=== PATIENT | male | born 1985 | race Caucasian/White ===

== ENCOUNTER → 2016-07-17 | Outpatient (CLI) | payer OTHER | END | disposition home or self-care (01) | LOC: RAD 09:11 | DX: K50.019 Crohn's disease of small intestine with unspecified complications (principal) ==

== ENCOUNTER → 2017-06-24 | Outpatient (CLI) | payer OTHER | END | disposition home or self-care (01) | LOC: LAB 13:34 | DX: Z13.71 Encounter for nonprocreative screening for genetic disease carrier status (principal) ==

== ENCOUNTER → 2018-01-30 | Outpatient (CLI) | payer OTHER ==
[2018-01-30 09:44] LABS: BASO % 0.4 % (0.0-1.0); EOS # 0.2 10*3/uL (0.0-0.4); EOS % 2.5 % (1.0-4.0); HEMATOCRIT 44.8 % (42.0-52.0); HEMOGLOBIN 14.6 g/dl (14.0-18.0); LYMPH # 1.1 10*3/uL (1.3-4.4); LYMPH % 12.8 % (27.0-41.0); MEAN CELL VOLUME 81.8 fl (80.0-94.0); MEAN CORPUSCULAR HGB 26.6 pg (27.0-31.0); MEAN CORPUSCULAR HGB CONC 32.6 g/dl (33.0-37.0); MEAN PLATELET VOLUME 9.2 fl (9.6-12.3); MONO # 0.8 10*3/uL (0.1-1.0); MONO % 9.8 % (3.0-9.0); NEUT # 6.3 10*3/uL (2.3-7.9); NEUT % 74.1 % (47.0-73.0); PLATELET COUNT AUTOMATED 270 10*3/uL (130-400); RED BLOOD COUNT 5.48 10*6/uL (4.50-5.90); RED CELL DISTRI WIDTH 13.4 % (0-14.5); WHITE BLOOD COUNT 8.5 10*3/uL (4.8-10.8)
[2018-01-30 10:12] LABS: ALBUMIN 3.4 gm/dl (3.1-4.5); BUN 11 mg/dl (7-24); CHLORIDE 106 mmol/L (98-107); CREATININE 1.05 mg/dL (0.70-1.30); SGOT/AST 19 IU/L (3-35); SGPT/ALT 23 U/L (12-78); SODIUM 140 mmol/L (136-145)
[2018-01-30 10:13] LABS: ALKALINE PHOSPHATASE 69 U/L (45-117); TOTAL PROTEIN 7.1 gm/dL (6.4-8.2)
== END | disposition home or self-care (01) ==
LOC: LAB 09:10
PROVIDERS: Physician Assistant
DX: K50.019 Crohn's disease of small intestine with unspecified complications (principal)

== ENCOUNTER 2018-08-12 14:35 | Emergency (ER) | payer OTHER ==
[~2018-08-12] VITALS: Ht 182.8 cm; Wt 61.7 kg
[2018-08-12 15:00] LABS: BASO % 0.2 % (0.0-1.0); EOS % 0.2 % (1.0-4.0); HEMATOCRIT 41.8 % (42.0-52.0); HEMOGLOBIN 13.5 g/dl (14.0-18.0); LYMPH # 0.9 10*3/uL (1.3-4.4); LYMPH % 7.1 % (27.0-41.0); MEAN CELL VOLUME 83.4 fl (80.0-94.0); MEAN CORPUSCULAR HGB 26.9 pg (27.0-31.0); MEAN CORPUSCULAR HGB CONC 32.3 g/dl (33.0-37.0); MEAN PLATELET VOLUME 9.2 fl (9.6-12.3); MONO % 8.4 % (3.0-9.0); NEUT # 10.2 10*3/uL (2.3-7.9); NEUT % 83.7 % (47.0-73.0); PLATELET COUNT AUTOMATED 293 10*3/uL (130-400); RED BLOOD COUNT 5.01 10*6/uL (4.50-5.90); RED CELL DISTRI WIDTH 13.5 % (0-14.5); WHITE BLOOD COUNT 12.2 10*3/uL (4.8-10.8)
[2018-08-12 15:18] LABS: ALBUMIN 3.5 gm/dl (3.1-4.5); ALKALINE PHOSPHATASE 58 U/L (45-117); BUN 10 mg/dl (7-24); CHLORIDE 106 mmol/L (98-107); CREATININE 0.99 mg/dL (0.70-1.30); POTASSIUM 3.5 mmol/L (3.5-5.1); SGOT/AST 16 IU/L (3-35); SGPT/ALT 24 U/L (12-78); SODIUM 140 mmol/L (136-145); TOTAL PROTEIN 6.8 gm/dL (6.4-8.2)
[2018-08-12 16:07] LABS: BILIRUBIN NEGATIVE (NEGATIVE); BLOOD 3+ (NEGATIVE); CLARITY CLEAR (CLEAR); COLOR YELLOW (YELLOW); GLUCOSE NEGATIVE (NEGATIVE); KETONE NEGATIVE (NEGATIVE); LEUKO ESTERASE NEGATIVE (NEGATIVE); NITRITE NEGATIVE (NEGATIVE); UROBILINOGEN 0.2 E.U./dl (0.2-1.0)
[2018-08-12 16:13] LABS: WBC 0-2 wbc/hpf (0-5)
[2018-08-12] MEDS ORDERED: Motrin,Rufen800 MG PO (18:06)
[2018-08-12] MEDS ORDERED: FLOMAX0.4 MG PO (18:06)
== END 2018-08-12 18:38 | disposition home or self-care (01) ==
LOC: ED 14:35
PROVIDERS: Physician Assistant
DX: N13.2 Hydronephrosis with renal and ureteral calculous obstruction (principal); Z87.442 Personal history of urinary calculi

== ENCOUNTER → 2018-09-03 | Outpatient (CLI) | payer OTHER ==
[~2018-09-03] MED LIST: FLOMAX0.4 MG PO; Motrin,Rufen800 MG PO
== END | disposition home or self-care (01) ==
LOC: US 12:59
DX: N13.39 Other hydronephrosis (principal)

== ENCOUNTER → 2018-10-15 | Outpatient (CLI) | payer OTHER | END | disposition home or self-care (01) | LOC: US 16:58 | DX: N20.0 Calculus of kidney (principal) ==

== ENCOUNTER → 2018-10-29 | Outpatient (CLI) | payer OTHER ==
[2018-10-29 16:53] LABS: BASO % 0.5 % (0.0-1.0); EOS # 0.2 10*3/uL (0.0-0.4); EOS % 1.9 % (1.0-4.0); HEMATOCRIT 42.1 % (42.0-52.0); HEMOGLOBIN 13.7 g/dl (14.0-18.0); LYMPH # 0.9 10*3/uL (1.3-4.4); LYMPH % 10.9 % (27.0-41.0); MEAN CELL VOLUME 80.7 fl (80.0-94.0); MEAN CORPUSCULAR HGB 26.2 pg (27.0-31.0); MEAN CORPUSCULAR HGB CONC 32.5 g/dl (33.0-37.0); MEAN PLATELET VOLUME 8.9 fl (9.6-12.3); MONO # 0.9 10*3/uL (0.1-1.0); MONO % 10.7 % (3.0-9.0); NEUT # 6.1 10*3/uL (2.3-7.9); NEUT % 75.8 % (47.0-73.0); PLATELET COUNT AUTOMATED 310 10*3/uL (130-400); RED BLOOD COUNT 5.22 10*6/uL (4.50-5.90); RED CELL DISTRI WIDTH 13.4 % (0-14.5)
[2018-10-29 17:25] LABS: ALBUMIN 3.4 gm/dl (3.1-4.5); ALKALINE PHOSPHATASE 65 U/L (45-117); BUN 8 mg/dl (7-24); CHLORIDE 103 mmol/L (98-107); CREATININE 0.89 mg/dL (0.70-1.30); POTASSIUM 3.9 mmol/L (3.5-5.1); SGOT/AST 13 IU/L (3-35); SGPT/ALT 19 U/L (12-78); SODIUM 137 mmol/L (136-145); T3 UPTAKE 39 % (31-39); THYROXINE (T4) TOTAL 8.7 ug/dl (4.5-12.1); TOTAL PROTEIN 7.4 gm/dL (6.4-8.2)
== END | disposition home or self-care (01) ==
LOC: CT 08:00 → LAB 15:56 → CT 16:00
PROVIDERS: Urology
DX: N20.0 Calculus of kidney (principal); K59.00 Constipation, unspecified

== ENCOUNTER → 2018-11-12 | Outpatient (CLI) | payer OTHER | END | disposition home or self-care (01) | LOC: LAB 16:55 | DX: K50.019 Crohn's disease of small intestine with unspecified complications (principal) ==

== ENCOUNTER → 2018-11-13 | Outpatient (CLI) | payer OTHER ==
[2018-11-21 18:10] LABS: BUSHITE 1.87 ratio (0.00-3.00); CALCIUM OXALATE 1.87 ratio (0.00-6.00); CALCIUM, URINE 155.8 mg/24 hr (100.0-300.0); CALCIUM, URINE 8.2 mg/dL (Not Estab.); CITRIC ACID (CITRATE) 272 mg/24 hr (320-1240); CREATININE, URINE 1584.6 mg/24 hr (1000.0-2000.0); CREATININE, URINE 83.4 mg/dL (Not Estab.); MAGNESIUM, URINE 2.4 mg/dL (Not Estab.); MONOSODIUM URATE 2.26 ratio (0.00-4.00); OSMOLALITY, URINE 329 (300-900); SODIUM, URINE 125 (58-337); SODIUM, URINE 66 mmol/L (Not Estab.); STRUVITE 0.17 ratio (0.00-1.00); URIC ACID 0.09 ratio (0.00-1.20); pH 24 HR URINE 7.2 (.)
== END | disposition home or self-care (01) ==
LOC: LAB 16:40
PROVIDERS: Urology
DX: N20.0 Calculus of kidney (principal)

== ENCOUNTER 2020-02-19 08:54 | Emergency (ER) | payer OTHER ==
[~2020-02-19] VITALS: Ht 182.8 cm; Wt 68.0 kg
== END 2020-02-19 09:38 | disposition home or self-care (01) ==
LOC: ED 08:54
DX: K61.0 Anal abscess (principal); Z88.8 Allergy status to other drugs, medicaments and biological substances; Z79.899 Other long term (current) drug therapy

== ENCOUNTER → 2020-10-07 | Outpatient (CLI) | payer OTHER ==
[2020-10-07 10:35] LABS: BASO % 0.4 % (0.0-1.0); EOS # 0.2 10*3/uL (0.0-0.4); EOS % 1.7 % (1.0-4.0); HEMATOCRIT 48.5 % (42.0-52.0); LYMPH # 1.7 10*3/uL (1.3-4.4); LYMPH % 16.8 % (27.0-41.0); MEAN CELL VOLUME 87.4 fl (80.0-94.0); MEAN CORPUSCULAR HGB 29.7 pg (27.0-31.0); MEAN PLATELET VOLUME 9.6 fl (9.6-12.3); MONO # 0.7 10*3/uL (0.1-1.0); MONO % 7.1 % (3.0-9.0); NEUT # 7.4 10*3/uL (2.3-7.9); NEUT % 73.8 % (47.0-73.0); PLATELET COUNT AUTOMATED 229 10*3/uL (130-400); RED BLOOD COUNT 5.55 10*6/uL (4.50-5.90); RED CELL DISTRI WIDTH 12.4 % (0-14.5); WHITE BLOOD COUNT 10.1 10*3/uL (4.8-10.8)
[2020-10-07 11:14] LABS: ALBUMIN 4.3 gm/dl (3.1-4.5); ALKALINE PHOSPHATASE 63 U/L (45-117); BUN 13 mg/dl (7-24); CHLORIDE 108 mmol/L (98-107); SGOT/AST 16 IU/L (3-35); SGPT/ALT 30 U/L (12-78); SODIUM 139 mmol/L (136-145); TOTAL PROTEIN 8.3 gm/dL (6.4-8.2)
[2020-10-07 13:09] LABS: VITAMIN D, 25-HYDROXY 82.6 ng/mL (30-100)
== END | disposition home or self-care (01) ==
LOC: LAB 10:18
PROVIDERS: ATTEND Internal Medicine Gastroenterology
DX: K50.019 Crohn's disease of small intestine with unspecified complications (principal)

== ENCOUNTER → 2021-07-31 | Outpatient (CLI) | payer OTHER ==
[2021-07-31 07:57] LABS: BASO % 0.4 % (0.0-1.0); EOS # 0.2 10*3/uL (0.0-0.4); EOS % 1.5 % (1.0-4.0); HEMATOCRIT 50.9 % (42.0-52.0); LYMPH % 18.2 % (27.0-41.0); MEAN CELL VOLUME 85.3 fl (80.0-94.0); MEAN CORPUSCULAR HGB 29.6 pg (27.0-31.0); MEAN CORPUSCULAR HGB CONC 34.8 g/dl (33.0-37.0); MEAN PLATELET VOLUME 9.3 fl (9.6-12.3); MONO # 0.9 10*3/uL (0.1-1.0); NEUT # 7.9 10*3/uL (2.3-7.9); NEUT % 71.5 % (47.0-73.0); PLATELET COUNT AUTOMATED 270 10*3/uL (130-400); RED BLOOD COUNT 5.97 10*6/uL (4.50-5.90); RED CELL DISTRI WIDTH 12.5 % (0-14.5)
[2021-07-31 08:20] LABS: ALKALINE PHOSPHATASE 62 U/L (45-117); BUN 14 mg/dl (7-24); CHLORIDE 105 mmol/L (98-107); CREATININE 1.07 mg/dL (0.70-1.30); POTASSIUM 3.9 mmol/L (3.5-5.1); SGOT/AST 18 IU/L (3-35); SGPT/ALT 36 U/L (12-78); SODIUM 138 mmol/L (136-145)
[2021-07-31 08:25] LABS: VITAMIN D, 25-HYDROXY 43.4 ng/mL (30-100)
== END ==
LOC: LAB 07:30
PROVIDERS: ATTEND Internal Medicine Gastroenterology
DX: K50.019 Crohn's disease of small intestine with unspecified complications (principal)

== ENCOUNTER 2022-04-27 08:14 | Inpatient (IN) | payer OTHER ==
[2022-04-27] VITALS (9 sets, daily range): BP systolic 107–155; BP diastolic 74–112
[~2022-04-27] VITALS: Ht 182.9 cm; Wt 76.7 kg
[2022-04-27 08:55] LABS: BASO # 0.1 10*3/uL (0.0-0.1); BASO % 0.5 % (0.0-1.0); EOS # 0.1 10*3/uL (0.0-0.4); EOS % 1.2 % (1.0-4.0); HEMATOCRIT 52.4 % (42.0-52.0); LYMPH # 2.1 10*3/uL (1.3-4.4); LYMPH % 22.1 % (27.0-41.0); MEAN CELL VOLUME 85.3 fl (80.0-94.0); MEAN CORPUSCULAR HGB 30.8 pg (27.0-31.0); MEAN CORPUSCULAR HGB CONC 36.1 g/dl (33.0-37.0); MEAN PLATELET VOLUME 9.4 fl (9.6-12.3); MONO # 0.9 10*3/uL (0.1-1.0); MONO % 9.8 % (3.0-9.0); NEUT # 6.2 10*3/uL (2.3-7.9); NEUT % 66.1 % (47.0-73.0); PLATELET COUNT AUTOMATED 261 10*3/uL (130-400); RED BLOOD COUNT 6.14 10*6/uL (4.50-5.90); WHITE BLOOD COUNT 9.4 10*3/uL (4.8-10.8)
[2022-04-27 09:09] LABS: ALKALINE PHOSPHATASE 63 U/L (46-116); BUN 9 mg/dl (9-23); CHLORIDE 103 mmol/L (98-107); POTASSIUM 3.5 mmol/L (3.4-5.1); SGPT/ALT 55 U/L (10-49); TOTAL PROTEIN 7.6 gm/dL (6.0-8.0)
[2022-04-27 09:11] LABS: ACT PARTIAL THROMBO TIME 26.4 SECONDS (20.0-32.1)
[2022-04-27] MEDS ORDERED: REMICADE100 MG IV (10:53)
[2022-04-28] VITALS: BP 110/78
[2022-04-28 08:00] VITALS: BP 120/84
[2022-04-28 12:00] VITALS: BP 116/80
[2022-04-28 16:00] VITALS: BP 121/91
[2022-04-28] MEDS ORDERED: ZOLOFT50 MG PO (16:46)
[2022-04-28] MEDS ORDERED: METOPROLOL SUCC25 M2 PO (16:46)
[2022-04-28] MEDS ORDERED: ADULT LOW DOSE81 MG PO (16:48)
== END 2022-04-28 18:30 | disposition home or self-care (01) | DRG 309 ==
LOC: ED 08:14 → EDHOLD 13:06 → 5E 13:29
PROVIDERS: Emergency Medicine; ADMIT Internal Medicine; ATTEND Internal Medicine
DX: I48.91 Unspecified atrial fibrillation (principal); K50.90 Crohn's disease, unspecified, without complications; K61.0 Anal abscess; F41.1 Generalized anxiety disorder; I34.0 Nonrheumatic mitral (valve) insufficiency; Z79.899 Other long term (current) drug therapy; Z88.8 Allergy status to other drugs, medicaments and biological substances; Z90.49 Acquired absence of other specified parts of digestive tract

== ENCOUNTER → 2022-05-04 | Outpatient (CLI) | payer OTHER ==
[~2022-05-04] MED LIST changes: +ADULT LOW DOSE81 MG PO; +METOPROLOL SUCC25 M2 PO; +REMICADE100 MG IV; +ZOLOFT50 MG PO
== END | disposition home or self-care (01) ==
LOC: CARD 00:13
PROVIDERS: ATTEND Internal Medicine
DX: I48.91 Unspecified atrial fibrillation (principal)

== ENCOUNTER → 2023-01-28 | Outpatient (CLI) | payer OTHER ==
[2023-01-28 10:06] LABS: BASO % 0.6 % (0.0-1.0); EOS # 0.2 10*3/uL (0.0-0.4); EOS % 3.6 % (1.0-4.0); HEMATOCRIT 50.8 % (42.0-52.0); LYMPH % 31.6 % (27.0-41.0); MEAN CELL VOLUME 83.6 fl (80.0-94.0); MEAN CORPUSCULAR HGB 29.6 pg (27.0-31.0); MEAN CORPUSCULAR HGB CONC 35.4 g/dl (33.0-37.0); MEAN PLATELET VOLUME 9.5 fl (9.6-12.3); MONO # 0.7 10*3/uL (0.1-1.0); NEUT # 3.4 10*3/uL (2.3-7.9); NEUT % 52.9 % (47.0-73.0); PLATELET COUNT AUTOMATED 244 10*3/uL (130-400); RED BLOOD COUNT 6.08 10*6/uL (4.50-5.90); RED CELL DISTRI WIDTH 12.5 % (0-14.5); WHITE BLOOD COUNT 6.5 10*3/uL (4.8-10.8)
[2023-01-28 10:34] LABS: VITAMIN D, 25-HYDROXY 54.9 ng/mL (30-100)
[2023-01-28 10:35] LABS: ALKALINE PHOSPHATASE 59 U/L (46-116); BUN 9 mg/dl (9-23); CHLORIDE 105 mmol/L (98-107); POTASSIUM 4.5 mmol/L (3.4-5.1); SGPT/ALT 60 U/L (5-49); TOTAL PROTEIN 7.7 gm/dL (6.0-8.0)
== END | disposition home or self-care (01) ==
LOC: LAB 09:40
PROVIDERS: Internal Medicine Gastroenterology; ATTEND Internal Medicine
DX: K50.019 Crohn's disease of small intestine with unspecified complications (principal)

== ENCOUNTER → 2023-02-01 | Outpatient (CLI) | payer OTHER | END | disposition home or self-care (01) | LOC: RAD 02:18 | PROVIDERS: ATTEND Internal Medicine Gastroenterology | DX: R10.813 Right lower quadrant abdominal tenderness (principal) ==

== ENCOUNTER → 2023-02-15 | Outpatient (CLI) | payer OTHER ==
[2023-02-15 10:17] LABS: TOTAL PROTEIN 7.4 gm/dL (6.0-8.0)
== END | disposition home or self-care (01) ==
LOC: LAB 09:09
PROVIDERS: ATTEND Internal Medicine Gastroenterology
DX: R79.89 Other specified abnormal findings of blood chemistry (principal)

== ENCOUNTER → 2023-09-17 | Outpatient (CLI) | payer OTHER ==
[2023-09-17 11:12] LABS: BASO % 0.4 % (0.0-1.0); EOS # 0.4 10*3/uL (0.0-0.4); EOS % 6.4 % (1.0-4.0); HEMATOCRIT 48.3 % (42.0-52.0); LYMPH # 2.1 10*3/uL (1.3-4.4); LYMPH % 31.5 % (27.0-41.0); MEAN CELL VOLUME 85.6 fl (80.0-94.0); MEAN CORPUSCULAR HGB 30.3 pg (27.0-31.0); MEAN CORPUSCULAR HGB CONC 35.4 g/dl (33.0-37.0); MEAN PLATELET VOLUME 9.5 fl (9.6-12.3); MONO # 0.7 10*3/uL (0.1-1.0); MONO % 10.7 % (3.0-9.0); NEUT # 3.4 10*3/uL (2.3-7.9); NEUT % 50.7 % (47.0-73.0); PLATELET COUNT AUTOMATED 242 10*3/uL (130-400); RED BLOOD COUNT 5.64 10*6/uL (4.50-5.90); RED CELL DISTRI WIDTH 12.6 % (0-14.5); WHITE BLOOD COUNT 6.7 10*3/uL (4.8-10.8)
[2023-09-17 11:46] LABS: CHOLESTEROL 184 mg/dL (<200); LDL CHOLESTEROL 111 mg/dL (9-159); TRIGLYCERIDES 110 mg/dl (<150)
[2023-09-17 11:47] LABS: ALKALINE PHOSPHATASE 58 U/L (46-116); BUN 9 mg/dl (9-23); CHLORIDE 105 mmol/L (98-107); SGPT/ALT 68 U/L (5-49); TOTAL PROTEIN 7.5 gm/dL (6.0-8.0)
== END | disposition home or self-care (01) ==
LOC: LAB 10:49
PROVIDERS: Internal Medicine; ATTEND Internal Medicine Gastroenterology
DX: I10 Essential (primary) hypertension (principal); J44.9 Chronic obstructive pulmonary disease, unspecified; E11.9 Type 2 diabetes mellitus without complications

== ENCOUNTER → 2023-09-30 | Outpatient (CLI) | payer OTHER | END | disposition home or self-care (01) | LOC: US 02:40 | PROVIDERS: ATTEND Internal Medicine Gastroenterology | DX: K76.0 Fatty (change of) liver, not elsewhere classified (principal); R79.89 Other specified abnormal findings of blood chemistry ==